=== PATIENT | male | born 1975 | race Caucasian/White ===

== ENCOUNTER 2016-10-27 09:56 | Emergency (ER) | payer OTHER ==
[2016-10-27 10:00] VITALS: BMI 39.9
[2016-10-27] MEDS ORDERED: NS 1000 ML 1,000 ML IV ONE (10:56)
[2016-10-27] MEDS ORDERED: ZOFRAN INJ 4 MG VIAL IVP ONE (10:57)
--- NOTE | 2016-10-27 11:01 | DR.GENAD ---
HPI - PCP Primary Care Physician: MALINI - Complaint/Symptoms Chief Complaint:: PT. C/O N/V, ABDOMINAL PAIN, HEADACHE, CHEST PAIN, AND DIZZINESS THAT BEGAN AT 0500. - Nurses notes reviewed Nurses Notes Review: Yes - Source History Provided: Patient - Mode of Arrival Mode of Arrival: Ambulatory - Timing Onset of Chief Complaint: 10/27/16 Came on: Gradually - Duration Duration: Intermittent How lon Duration: Hours - Location Location: stomach - Severity Severity: Moderate - Modifying Factors Worsens:: food - Associated Signs and Symptoms Associated Signs and Symptoms: diarrhea PMH - PMH Past Medical History: Yes Past Medical History: Hypertension Past Surgical History: No Surgical History: No History - Family History History of Family Medical Conditions: Yes Family Medical History: [place], Coronary Artery Disease Family Medical History Comment: CVA - Social History Does patient currently use any type of tobacco product: No Have you used tobacco products in the last 12 months: No Type of Tobacco Use: None Does any household member use tobacco: No Alcohol Use: None Do you use any recreational Drugs:: No Lives With: Spouse Lives Where: Home - infectious screening In the last 2 months have you had wt loss of >10#?: NO Have you had fever, night sweats or hemotysis?: No Have you traveled outside the country in the last 6 months?: No Isolation: Standard ROS - Review of Systems Constitutional: No Symptoms Reported Eyes: No Symptoms Reported ENTM: No Symptoms Reported Respiratoy: No Symptoms Reported Cardiovascular: No Symptoms Reported Gastrointestinal/Abdominal: Diarrhea, Nausea, Vomiting Genitourinary: No Symptoms Reported Neurological: No Symptoms Reported Musculoskeletal: No Symptoms Reported Integumentary: No Symptoms Reported Hematologic/Lymphatic: No Symptoms Reported Endocrine: No Symptoms Reported Psychiatric: No Symptoms Reported All Other Systems: Reviewed and Negative PE - Vital Signs Vitals: Temperature 99 F Pulse Rate 90 Respiratory Rate 22 Blood Pressure [Left Arm] 198/108 Blood Pressure 202/119 O2 Sat by Pulse Oximetry 96 - General Limitations: No Limitations General Appearance: Alert, In No Apparent Distress - Head Head Exam: Normal Inspection - Eyes Eye exam: Normal Appearance, EOMI. negative: Scleral Icterus, Conjunctival Injection - ENT ENT Exam: Normal Exam, Normal Oropharynx - Neck Neck Exam: Normal Inspection, Full ROM, Trachea Midline - Chest Chest Inspection: Normal Inspection - Respiratory Respiratory Exam: Normal Lung Sounds Bilat. negative: Accessory Muscle Use, Respiratory Distress Respiratory Exam: Bilateral Clear to Auscultation - Cardiovascular Cardiovascular Exam: Tachycardia - Abdominal Exam Abdominal Exam: Normal Inspection, Normal Bowel Sounds, Soft. negative: Distention, Tenderness, Guarding - Extremities Extremities Exam: Normal Inspection, Full ROM, Tenderness - Neurologic Neurological Exam: Alert, Oriented X3, CN II-XII Intact - Psychiatric Psychiatric Exam: Normal Mood - Skin Skin Exam: Intact, Normal Color ROR - Labs Reviewed Result Diagrams: 10/27/16 11:00 10/27/16 11:00 Laboratory: WBC 8.4 X10^3/uL (3.6-10.0) 10/27/16 11:00 RBC 4.92 X10^6/uL (4.7-6.0) 10/27/16 11:00 Hgb 14.4 g/dL (13.5-18.0) 10/27/16 11:00 Hct 42.3 % (42.0-54.0) 10/27/16 11:00 MCV 86.1 fL (80.0-100.0) 10/27/16 11:00 MCH 29.2 pg (27.0-34.0) 10/27/16 11:00 MCHC 33.9 g/dL (33.0-35.0) 10/27/16 11:00 RDW 14.2 % (11.6-16.5) 10/27/16 11:00 Plt Count 210 X10^3/uL (150.0-450.0) 10/27/16 11:00 Plt Count Comment Adequate (ADEQUATE) 10/27/16 11:00 MPV 8.0 fL (7.4-11.0) 10/27/16 11:00 Neut % 90.3 % (42.0-75.0) H 10/27/16 11:00 Lymph % 3.8 % (21.0-51.0) L 10/27/16 11:00 [facility] % 5.7 % (0.0-13.0) 10/27/16 11:00 Eos % 0.1 % (0.9-2.9) L 10/27/16 11:00 Baso % 0.1 % (0.2-1.0) L 10/27/16 11:00 Neut # 7.6 x10^3/uL (2.2-4.8) H 10/27/16 11:00 Lymph # 0.3 X10^3/uL (1.3-2.9) L 10/27/16 11:00 [facility] # 0.5 x10^3/uL (0.3-0.8) 10/27/16 11:00 Eos # 0.0 x10^3/uL (0.0-0.2) 10/27/16 11:00 Baso # 0.0 X10^3/uL (0.0-0.1) 10/27/16 11:00 Absolute Nucleated RBC 0.1 /100WBC 10/27/16 11:00 Total Counted 100 10/27/16 11:00 Neutrophils % (Manual) 90 % (39-76) H 10/27/16 11:00 Band Neutrophils % 3 % (0-10) 10/27/16 11:00 Lymphocytes % (Manual) 4 % (13-43) L 10/27/16 11:00 Monocytes % (Manual) 3 % (4-9) L 10/27/16 11:00 Plt Morphology Comment Normal (NORMAL) 10/27/16 11:00 RBC Morphology Normal (NORMAL) 10/27/16 11:00 Sodium 143 mmol/L (136-145) 10/27/16 11:00 Corrected Sodium 143 mmol/L (136-145) 10/27/16 11:00 Potassium 3.3 mmol/L (3.5-5.1) L 10/27/16 11:00 Chloride 104 mmol/L (98-107) 10/27/16 11:00 Carbon Dioxide 29.2 mmol/L (21-32) 10/27/16 11:00 BUN 18 mg/dL (7-18) 10/27/16 11:00 Creatinine 1.21 mg/dL (0.70-1.30) 10/27/16 11:00 Est GFR (MDRD) Af Amer > 60 (>60) 10/27/16 11:00 Est GFR (MDRD) Non-Af > 60 (>60) 10/27/16 11:00 Glucose 119 mg/dL (65-99) H 10/27/16 11:00 Calcium 9.1 mg/dL (8.5-10.1) 10/27/16 11:00 Corrected Calcium TNP 10/27/16 11:00 Total Bilirubin 1.10 mg/dL (0.2-1.0) H 10/27/16 11:00 AST 22 Units/L (15-37) 10/27/16 11:00 ALT 47 Units/L (12-78) 10/27/16 11:00 Alkaline Phosphatase 73 Units/L (46-116) 10/27/16 11:00 Total Protein 8.0 g/dL (6.4-8.2) 10/27/16 11:00 Albumin 4.3 g/dL (3.4-5.0) 10/27/16 11:00 Globulin 3.7 g/dL (2.5-4.5) 10/27/16 11:00 Albumin/Globulin Ratio 1.2 Ratio (1.1-2.1) 10/27/16 11:00 Lipase 112 Units/L (73-393) 10/27/16 11:00 - Diagnosis Discharge Problem: Gastroenteritis Hypertension Qualifiers: Hypertension type: essential hypertension Qualified Code(s): I10 - Essential ( primary) hypertension - Discharge Plan Condition: Stable Prescriptions: Ondansetron [Zofran Odt] 4 mg PO Q8H PRN #12 tab PRN Reason: Nausea/Vomiting - Follow ups/Referrals Follow ups/Referrals: AGUEDA NAYAK [Primary Care Provider] - 3 days - Instructions Instructions: Nausea, Adult, Hypertension
[2016-10-27] MEDS ORDERED: NS 1000 ML 1,000 ML ONE (11:03)
[2016-10-27] MEDS ORDERED: ZOFRAN INJ 4 MG VIAL ONE (11:04)
[2016-10-27] MEDS ORDERED: CATAPRES TAB 0.2 MG PO ONE (11:04)
[2016-10-27] MEDS ORDERED: PROCARDIA XL PO ONE (11:04)
[2016-10-27] MEDS ORDERED: NORVASC TAB 5 MG PO ONE (11:05)
[2016-10-27 11:09] LABS: BASOPHILS % (AUTO) 0.1 % (0.2-1.0); EOSINOPHILS % (AUTO) 0.1 % (0.9-2.9); HEMATOCRIT 42.3 % (42.0-54.0); HEMOGLOBIN 14.4 g/dL (13.5-18.0); LYMPHOCYTES # (AUTO) 0.3 X10^3/uL (1.3-2.9); LYMPHOCYTES % (AUTO) 3.8 % (21.0-51.0); MEAN CORPUSCULAR HEMOGLOBIN 29.2 pg (27.0-34.0); MEAN CORPUSCULAR HGB CONC 33.9 g/dL (33.0-35.0); MEAN CORPUSCULAR VOLUME 86.1 fL (80.0-100.0); MONOCYTES # (AUTO) 0.5 x10^3/uL (0.3-0.8); MONOCYTES % (AUTO) 5.7 % (0.0-13.0); NEUTROPHILS # (AUTO) 7.6 x10^3/uL (2.2-4.8); NEUTROPHILS % (AUTO) 90.3 % (42.0-75.0); PLATELET COUNT 210 X10^3/uL (150.0-450.0); RED BLOOD COUNT 4.92 X10^6/uL (4.7-6.0); RED CELL DISTRIBUTION WIDTH 14.2 % (11.6-16.5); WHITE BLOOD COUNT 8.4 X10^3/uL (3.6-10.0)
[2016-10-27] MEDS ORDERED: CATAPRES TAB 0.2 MG ONE (11:11)
[2016-10-27 11:27] LABS: ALANINE AMINOTRANSFERASE 47 Units/L (12-78); ALBUMIN 4.3 g/dL (3.4-5.0); ALKALINE PHOSPHATASE 73 Units/L (46-116); ASPARTATE AMINO TRANSFERASE 22 Units/L (15-37); BLOOD UREA NITROGEN 18 mg/dL (7-18); CALCIUM 9.1 mg/dL (8.5-10.1); CARBON DIOXIDE 29.2 mmol/L (21-32); CHLORIDE 104 mmol/L (98-107); COR NA(FOR HYPERGLY) 143 mmol/L (136-145); CREATININE 1.21 mg/dL (0.70-1.30); GLUCOSE 119 mg/dL (65-99); LIPASE 112 Units/L (73-393); SODIUM 143 mmol/L (136-145); eGFR BLACK RACES > 60 (>60); eGFR NON BLACK RACES > 60 (>60)
[2016-10-27 11:36] LABS: BAND NEUTROPHILS % 3 % (0-10)
[2016-10-27 11:37] LABS: PLATELET MORPHOLOGY COMMENT NORMAL (NORMAL)
[2016-10-27] MEDS ORDERED: POTASSIUM CHLORIDE LIQ 20 MEQ UDC PO ONE (11:45)
[2016-10-27] MEDS ORDERED: NORMODYNE INJ 20 MG VIAL IVP ONE (11:59)
[2016-10-27] MEDS ORDERED: POTASSIUM CHLORIDE LIQ 20 MEQ UDC ONE (12:11)
[2016-10-27] MEDS ORDERED: NORMODYNE INJ 20 MG VIAL ONE (12:11)
[2016-10-27 12:31] VITALS: BP 175/94
== END 2016-10-27 12:33 | disposition home or self-care (01) ==
LOC: ER 10:40
DX: K52.89 Other specified noninfective gastroenteritis and colitis (principal); I10 Essential (primary) hypertension
CPT/HCPCS: 36415; 80053; 83690; 85025; 96365; 96374; 96375; 99283; A4216; A4222; J2405; J3490